=== PATIENT | male | born 1950 | race Caucasian/White ===

== ENCOUNTER 2016-11-14 15:12 | Emergency (ER) | payer BC, MEDICAID, OTHER ==
[2016-11-14 15:48] LABS: BILIRUBIN,URINE NEGATIVE (NEGATIVE); PH,URINE 5.5 PH (5.0-7.5)
[2016-11-14 15:58] LABS: UA w/ MICROSCOPIC CHARGE YES
--- NOTE | 2016-11-14 16:04 | ED Physician Documentation ---
History of Present Illness - Stated complaint Stated Complaint: BLOOD IN URINE/LOW ABD PX - Chief complaint Chief Complaint: UTI - Additonal information Additional information: Patient is a 66-year-old man with history of type 2 diabetes and hep C untreated who presents with dark urine for the past day. He is also developed lower urinary symptoms and is complaining of generalized malaise. He does not have any nausea vomiting and there is no fever. He does have constipation or diarrhea. He really has no other complaints but decided to get it checked out since he needs to be on the job this weekend. He has been out working in the sun. Review of systems: For pertinent positive and negatives in the review of systems please see the history of present illness, otherwise all other systems have been reviewed and are negative. Dragon disclaimer: Parts of this medical record were created using voice recognition technology. Because of the inherent limitations of this system, occasional same sounding word substitutions do occur and persist despite proofreading. Please read the document for context. Review of Systems Constitutional: denies: Fever, Chills GI: denies: Abdominal Pain, Abdominal Swelling : reports: Dysuria, Frequency, Hesitancy PD PAST MEDICAL HISTORY - Past Medical History Endocrine/Autoimmune: Type 2 diabetes Psych: Post traumatic stress disorder - Past Surgical History Past Surgical History: Yes General: Other - Present Medications Home Medications: Ambulatory Orders Medication Instructions Recorded Confirmed Glipizide 10 mg PO BID 01/05/14 11/14/16 Atorvastatin [Lovastatin] 20 mg PO QPM 03/21/14 11/14/16 Ciprofloxacin HCl [Cipro] 500 mg PO BID #10 tablet 11/14/16 Insulin Aspart [NovoLOG] 15 units SQ DAILY 11/14/16 11/14/16 Lisinopril 5 mg PO DAILY 11/14/16 11/14/16 Phenazopyridine HCl [Pyridium] 200 mg PO TID #9 tablet 11/14/16 Tujeo 50 units SQ DAILY 11/14/16 - Allergies Allergies/Adverse Reactions: Allergies Allergy/AdvReac Type Severity Reaction Status Date / Time No Known Drug Allergies Allergy Verified 11/14/16 15:34 - Social History Does the pt smoke?: Yes Smoking Status: Current every day smoker Does the pt drink ETOH?: No Does the pt have substance abuse?: No PD ED PE NORMAL - Vitals Vital signs reviewed: Yes - General General: Alert and oriented X 3, No acute distress - Cardiac Cardiac: RRR, No murmur - Respiratory Respiratory: No respiratory distress, Clear bilaterally - Abdomen Abdomen: Normal bowel sounds, Soft, Non tender, Non distended - Back Back: No CVA TTP - Neuro Neuro: Alert and oriented X 3 - Psych Psych: Normal mood, Normal affect Results - Vitals Vitals: Vital Signs - 24 hr 11/14/16 15:19 Temperature 36.4 C L Heart Rate 72 Respiratory 20 Rate Blood Pressure 124/73 O2 Saturation 97 Oxygen O2 Source [With Activity] Room air O2 Source Room air - Labs Labs: Laboratory Tests 11/14/16 11/14/16 11/14/16 15:44 16:30 16:30 WBC 12.2 H RBC 5.23 Hgb 15.6 Hct 45.8 MCV 87.6 MCH 29.9 MCHC 34.1 RDW 13.7 Plt Count 236 MPV 8.2 Neut # 7.3 H Lymph # 3.7 H [place] # 0.9 Eos # 0.2 Baso # 0.1 Absolute Nucleated RBC 0.00 Nucleated RBCs 0.0 Sodium 138 Potassium 4.0 Chloride 102 Carbon Dioxide 27 Anion Gap 9.0 BUN 23 H Creatinine 1.1 Estimated GFR (MDRD) 67 L Glucose 129 H Calcium 9.3 Urine Color DARK YELLOW Urine Clarity CLOUDY Urine pH 5.5 Ur Specific [place] >=1.030 H Urine Protein 100 H Urine Glucose (UA) NEGATIVE Urine Ketones TRACE Urine Occult Blood LARGE H Urine Nitrite NEGATIVE Urine Bilirubin NEGATIVE Urine Urobilinogen 1 (NORMAL) Ur Leukocyte Esterase TRACE H Urine RBC TNTC H Urine WBC 11-25 H Ur Epithelial Cells FEW Transitional Ur Squamous Epith Cells RARE Squamous Urine Bacteria Few Urine Yeast PRESENT Ur Microscopic Review INDICATED Urine Culture Comments INDICATED PD MEDICAL DECISION MAKING - ED course Complexity details: reviewed results, re-evaluated patient, d/w patient ED course: Appearing 66-year-old male with a history of type 2 diabetes who presents with a complaint of lower urinary symptoms and hematuria. He does not have any flank pain nausea or vomiting or any other symptoms that make me more suspicious for kidney stones. His urine was maximally concentrated so is given 1 L of normal saline. His blood work really is unremarkable. His urine suggests a hemorrhagic cystitis. Urine will be cultured he is given 1 g of Rocephin here and he continues to look well. At this point in time he will be released back to home and will place him on a short course of ciprofloxacin and Pyridium. Disposition: To home Clinical impression: 1. Hemorrhagic cystitis 2. Mild dehydration Departure - Departure Disposition: Home, Self Care Clinical Impression: UTI (urinary tract infection), bacterial Condition: Good Instructions: ED UTI Cystitis Male Follow-Up: your,physician [Other] Prescriptions: Ciprofloxacin HCl [Cipro] 500 mg PO BID #10 tablet Phenazopyridine HCl [Pyridium] 200 mg PO TID #9 tablet
[2016-11-14 16:16] LABS: UR CULTURE IF IND INDICATED
[2016-11-14] MEDS ORDERED: SODIUM CHLORIDE 0.9% 1,000 ML IV ONE (16:19)
[2016-11-14] MEDS ORDERED: cefTRIAXone 1 GM VIAL IM STA (16:20)
[2016-11-14] MEDS ORDERED: LIDOCAINE 1% 2 ML VIAL ONE (16:43)
[2016-11-14] MEDS ORDERED: cefTRIAXone 1 GM VIAL ONE (16:43)
[2016-11-14 16:45] LABS: BASOPHILS # (AUTO) 0.1 10^3/uL (0.0-0.1); BASOPHILS % (AUTO) 0.9 %; EOSINOPHILS # (AUTO) 0.2 10^3/uL (0.0-0.7); EOSINOPHILS % (AUTO) 1.8 %; HCT - HEMATOCRIT 45.8 % (42.0-52.0); HGB - HEMOGLOBIN 15.6 g/dL (14.0-18.0); LYMPHOCYTES # (AUTO) 3.7 10^3/uL (1.5-3.5); LYMPHOCYTES % (AUTO) 29.9 %; MEAN CORPUSCULAR HEMOGLOBIN 29.9 pg (27.0-31.0); MEAN CORPUSCULAR HGB CONC 34.1 g/dL (32.0-36.0); MEAN CORPUSCULAR VOLUME 87.6 fL (80.0-94.0); MEAN PLATELET VOLUME 8.2 fL (7.4-11.4); MONOCYTES # (AUTO) 0.9 10^3/uL (0.0-1.0); MONOCYTES % (AUTO) 7.5 %; NEUTROPHILS # (AUTO) 7.3 10^3/uL (1.5-6.6); NEUTROPHILS % (AUTO) 59.9 %; RED BLOOD COUNT 5.23 10^6/uL (4.70-6.10); RED CELL DISTRIBUTION WIDTH 13.7 % (12.0-15.0); UNCORRECTED WHITE BLOOD COUNT 12.2 x10^3/uL; WHITE BLOOD COUNT 12.2 x10^3/uL (4.8-10.8)
[2016-11-14 16:46] LABS: CALCIUM 9.3 mg/dL (8.5-10.3); CREATININE 1.1 mg/dL (0.6-1.2)
[2016-11-14 17:40] VITALS: BP 131/76
[2016-11-14] MEDS ORDERED: DEXAMETHASONE 10 MG/ML VIAL ONE (23:11)
== END 2016-11-14 17:39 | disposition home or self-care (01) ==
LOC: ED 15:12
DX: N30.91 Cystitis, unspecified with hematuria (principal); E86.0 Dehydration; E11.8 Type 2 diabetes mellitus with unspecified complications; Z79.4 Long term (current) use of insulin; B19.20 Unspecified viral hepatitis C without hepatic coma; F17.200 Nicotine dependence, unspecified, uncomplicated
CPT/HCPCS: 36415; 80048; 81001; 81003; 85025; 87086; 96372; 99283